=== PATIENT | female | born 1965 | race Two or more races ===

== ENCOUNTER 2016-05-05 23:36 | Emergency (ER) | payer OTHER ==
[2016-05-05] MEDS ORDERED: NO MEDS (23:44)
[2016-05-06 00:02] LABS: BASO % 0.3 % (0-2); EOSINOPHIL ABSOLUTE COUNT 0.2 tho/cmm (0.0-0.7); HGB-HEMOGLOBIN 13.8 gm/dl (12.0-15.5); IMMATURE GRANULOCYTES ABSOLUTE 0.02 tho/cmm (0-0.03); IMMATURE GRANULOCYTES PERCENT 0.3 % (0-0.3); LYMPH % 49.2 % (20-45); LYMPH ABSOLUTE COUNT 3.9 tho/cmm (0.8-4.5); MCH (MEAN CORPUSCULAR HGB) 31.4 pg (28.0-32.0); MCHC MEAN CORPUSCULAR HGB CONC 34.5 % (32.0-36.0); MCV (MEAN CELL VOLUME) 91.1 fl (82.0-96.0); MEAN PLATELET VOLUME 11.4 cmc (9.4-12.4); MONOCYTE ABSOLUTE COUNT 0.5 tho/cmm (0.0-1.2); NEUTROPHIL ABSOLUTE COUNT 3.3 tho/cmm (1.6-8.0); NEUTROPHIL-AUTOMATED 3.3 tho/cmm (1.6-8.0); NEUTROPHILS % 42.2 % (40-80); PLATELET COUNT 227 tho/cmm (150-450); RED BLOOD COUNT 4.39 mil/cmm (4.00-5.20); RED CELL DISTRIBUTION WIDTH 12.2 % (12.4-16.4); WHITE BLOOD COUNT 7.9 tho/cmm (4.0-10.0)
[2016-05-06 00:21] LABS: ALCOHOL (ETOH) <10 mg/dl (<10); ANION GAP 12 mmol/L (0-20); BLOOD UREA NITROGEN 15 mg/dl (6-24); CALCIUM 9.2 mg/dl (8.5-10.5); CARBON DIOXIDE-VENOUS 28 mmol/L (22-32); CHLORIDE 106 mmol/l (96-110); CREATININE 0.79 mg/dl (0.50-1.10); GLUCOSE 109 mg/dL (70-110); MAGNESIUM 2.3 mg/dl (1.3-2.6); POTASSIUM 3.5 mmol/L (3.7-5.1); PROLACTIN 45 ng/ml; SODIUM 142 mmol/L (135-145); eGFR VALUE FOR BLACK >90 mL/Min
== END 2016-05-06 03:38 ==
LOC: EDMED 23:36
PROVIDERS: Emergency Medicine
DX: R55 Syncope and collapse (principal); R51 Headache; R10.12 Left upper quadrant pain; G89.29 Other chronic pain
CPT/HCPCS: G0480; J1885; J2405; J7030; P9612